=== PATIENT | female | born 1970 | race Caucasian/White ===

== ENCOUNTER 2020-12-11 11:05 | Outpatient (CLI) | payer BC, SELFPAY ==
--- NOTE | 2020-12-11 11:16 | XR_ITS ---
WS: [id number] Exam: XR foot RT min 3V* [id number] Date/Time of Exam: 12/11/2020 11:16 AM Reason For Exam: FOOT PAIN, RIGHT No fracture or dislocation. No soft tissue foreign bodies are identified. Prominent plantar heel spur noted. XR/XR foot RT min 3V* [id number] IMPRESSION: 1. No fracture or dislocation noted.
== END 2020-12-11 11:06 | disposition home or self-care (01) ==
PROVIDERS: PCP Family Medicine; Visit Provider Family Medicine
DX: M79.672 Pain in left foot (principal)
CPT/HCPCS: 73630

== ENCOUNTER 2021-01-15 15:06 | Outpatient (CLI) | payer BC, SELFPAY ==
--- NOTE | 2021-01-15 15:13 | MM_ITS ---
WS: [id number] BILATERAL DIGITAL SCREENING MAMMOGRAPHY WITH CAD CLINICAL INFORMATION: SCREENING HISTORY: Screening mammogram. No current complaints. COMPARISON: TECHNIQUE: Bilateral CC and MLO views. FINDINGS: Scattered fibroglandular densities bilaterally. Biopsy clip right breast. No suspicious focal mass, a symmetry, calcifications, or architectural distortion. No evidence of malignancy. MM/[place] [id number] IMPRESSION: BI-RADS: 2-Benign FOLLOW UP: 1 Year Follow-up Recommend return to annual screening mammography.
== END 2021-01-15 15:07 | disposition home or self-care (01) ==
LOC: RADSHAW 15:10
PROVIDERS: PCP Family Medicine; Visit Provider Family Medicine
DX: Z12.31 Encounter for screening mammogram for malignant neoplasm of breast (principal)
CPT/HCPCS: 77067

== ENCOUNTER 2021-04-05 15:06 | Outpatient (CLI) | payer BC, SELFPAY ==
--- NOTE | 2021-04-05 | XR_ITS ---
WS: [id number] RIGHT KNEE: 3 VIEW(S) TECHNIQUE: AP, oblique(s) and lateral. HISTORY: DERANGEMENT OF OTHER LATERAL MENISCUS DUE TO OLD TEAR OR INJURY. COMPARISON: None available. No fracture or dislocation. Mild tricompartment joint space narrowing with small osteophytes along the joint lines. No joint effusion. No soft tissue abnormality. XR/XR knee RT 3V* [id number] IMPRESSION: Mild tricompartment osteoarthritis.
== END 2021-04-05 15:07 | disposition home or self-care (01) ==
PROVIDERS: PCP Family Medicine; Visit Provider Family Medicine
DX: M23.261 Derangement of other lateral meniscus due to old tear or injury, right knee (principal); M17.11 Unilateral primary osteoarthritis, right knee
CPT/HCPCS: 73562

== ENCOUNTER 2022-02-19 16:06 | Outpatient (CLI) | payer BC, SELFPAY ==
--- NOTE | 2022-02-19 16:12 | XR_ITS ---
WS: [id number] Right knee, 3 views, 02/19/2022 Clinical Data: Right knee pain Comparison: Right knee, 04/05/2021. Findings: No fractures or dislocations are seen. There is narrowing of the medial and lateral joint compartment s. There are spurs of the medial and lateral tibial plateau and medial and lateral femoral condyles. The posterior patella shows minimal irregularity.The soft tissues are normal. XR/XR knee RT 3V* [id number] Impression: Mild osteoarthritis of the right knee with no change from prior study. Kellgren-Andres Classification: grade 2 (minimal): definite osteophytes and p ossible joint space narrowing
== END 2022-02-19 16:07 | disposition home or self-care (01) ==
LOC: RAD 16:08
PROVIDERS: PCP Family Medicine; Visit Provider Family Medicine
DX: M17.11 Unilateral primary osteoarthritis, right knee (principal)
CPT/HCPCS: 73562

== ENCOUNTER 2022-02-20 06:58 | Outpatient (CLI) | payer BC, SELFPAY ==
[2022-02-20 07:33] LABS: Basophils % 0.9 %; Eosinophils # 0.1 10^3/uL (0.0-0.8); Eosinophils % 2.5 %; Hematocrit 35.8 % (37.0-47.0); Hemoglobin 12.2 g/dL (11.5-15.3); Lymphocytes # 1.5 10^3/uL (0.8-4.8); Lymphocytes % 32.7 %; Mean Corpuscular HGB Conc 34.1 g/dL (30.0-36.0); Mean Corpuscular Hemoglobin 30.8 pg (28.0-34.0); Mean Corpuscular Volume 90.4 fl (81-99); Monocytes # 0.4 10^3/uL (0.2-0.9); Monocytes % 8.3 %; Neutrophils # 2.47 10^3/uL (1.8-7.7); Neutrophils % 55.4 %; Nucleated Red Blood Cells % 0 %; Platelet Count 265 10^3/cmm (130-400); Red Blood Count 3.96 10^6/uL (4.1-5.3); Red Cell Distribution Width 12.4 % (12.1-15.1); White Blood Count 4.5 10^3/uL (4.0-10.0)
[2022-02-20 08:05] LABS: Alanine Aminotransferase 28 U/L (0-33); Alkaline Phosphatase 120 IU/L (35-105); Anion Gap 12.1 (5-19); Aspartate Amino Transferase 21 U/L (0-32); Blood Urea Nitrogen 25 mg/dL (6-20); Calcium 8.7 mg/dL (8.5-10.5); Carbon Dioxide 29 mmol/L (22-29); Chloride 104 mmol/L (98-107); Cholesterol 159 mg/dL (0-200); Globulin 2.3 g/dL (1.3-4.6); Glomerular Filtration Rate 130.1 mL/min (90-130); Glucose 95 mg/dL (65-115); HDL Cholesterol 53 mg/dL (60-100); LDL Cholesterol Calculated 88 mg/dL (50-129); LDL HDL Ratio 1.66 RATIO (0.00-3.22); Osmolality Calculated 296 mOsm/kg (285-295); Potassium 4.1 mmol/L (3.5-5.1); Sodium 141 mmol/L (136-145); Total Bilirubin 0.2 mg/dL (0.15-1.2); Total Protein 6.3 g/dL (6.6-8.7); Triglycerides 89 mg/dL (0-150)
== END 2022-02-20 06:59 | disposition home or self-care (01) ==
PROVIDERS: PCP Family Medicine; Visit Provider Family Medicine
DX: Z51.81 Encounter for therapeutic drug level monitoring (principal); Z13.220 Encounter for screening for lipoid disorders
CPT/HCPCS: 36415; 80053; 80061; 85025

== ENCOUNTER 2022-06-16 06:00 | Outpatient (RCR) | payer BC, SELFPAY | END 2022-06-18 23:59 | disposition home or self-care (01) | LOC: SPT 06:00 | PROVIDERS: PCP Family Medicine; Visit Provider Orthopaedic Surgery | DX: Z47.1 Aftercare following joint replacement surgery (principal); Z96.651 Presence of right artificial knee joint | CPT/HCPCS: 95992; 97110; 97161 ==

== ENCOUNTER 2022-06-19 06:00 | Outpatient (RCR) | payer BC, SELFPAY | END 2022-07-19 23:59 | disposition home or self-care (01) | LOC: SPT 06:00 | PROVIDERS: PCP Family Medicine; Visit Provider Orthopaedic Surgery | DX: Z47.1 Aftercare following joint replacement surgery (principal); Z96.651 Presence of right artificial knee joint | CPT/HCPCS: 97110 ==

== ENCOUNTER 2022-07-20 06:00 | Outpatient (RCR) | payer BC, SELFPAY | END 2022-08-04 23:59 | disposition home or self-care (01) | LOC: SPT 06:00 | PROVIDERS: PCP Family Medicine; Visit Provider Orthopaedic Surgery | DX: Z47.1 Aftercare following joint replacement surgery (principal); Z96.651 Presence of right artificial knee joint | CPT/HCPCS: 97110 ==